=== PATIENT | male | born 1960 | race Caucasian/White ===

== ENCOUNTER 2017-08-07 06:56 | Day surgery (SDC) | payer OTHER ==
[2017-08-07] MEDS ORDERED: LR 1,000 ML IV ONE (07:10)
[2017-08-07 07:46] VITALS: PULSE 70
--- NOTE | 2017-08-07 07:48 | PDHPUP ---
History & Physical Update H&P update statement: This history and physical update is based on an assessment of the patient which was completed after admission or registration (within 24 hours), but prior to the surgery/procedure. H&P update: H&P reviewed & patient examined, no change in patient's condition since H&P completed
[2017-08-07] MEDS ORDERED: BUPIVACAINE 0.5% 30 ML SDV ONE (07:50)
[2017-08-07] MEDS ORDERED: MIDAZOLAM 2 MG/2 ML VIAL IVP ONE (08:01)
--- NOTE | 2017-08-07 08:05 | PDANEPAE ---
ANE History of Present Illness Laparoscopic BL hernia ANE Past Medical History - Cardiovascular History Hx Hypertension: No Hx Arrhythmias: No Hx Chest Pain: No Hx Coronary Artery / Peripheral Vascular Disease: No Hx CHF / Valvular Disease: No Hx Palpitations: No - Pulmonary History Hx COPD: No Hx Asthma/Reactive Airway Disease: No Hx Recent Upper Respiratory Infection: No Hx Oxygen in Use at Home: No Hx Sleep Apnea: No Sleep Apnea Screening Result - Last Documented: Negative Pulmonary History Comment: DENIES SOB W STAIRS - Neurologic History Hx Cerebrovascular Accident: No Hx Seizures: No Hx Dementia: No - Endocrine History Hx Diabetes: Yes Hypothyroid: Yes Endocrine History Comment: LOW THYROID - Renal History Hx Renal Disorders: No - Liver History Hx Hepatic Disorders: No - Neurological & Psychiatric Hx Hx Neurological and Psychiatric Disorders: Yes Neurological / Psychiatric History Comment: ADD - Cancer History Hx Cancer: Yes Cancer History Comment: hx of skin ca - Congenital Disorder History Hx Congenital Disorders: No - GI History GERD: no Hx Gastrointestinal Disorders: No - Other Health History Other Health History: OA R KNEE. - Chronic Pain History Chronic Pain: Yes (R KNEE) - Surgical History Prior Surgeries: L TKA 2015. R TKA 2015. right ear plastic surgery at 4 years old. bilateral wrists set under anesthesia at 7 years old. 8 years ago right achilles tendon repair. 2009 right acl repair [address] dr los MCALLISTER Review of Systems Review of systems is: negative Review of Systems: - Exercise capacity METS (RN): 5 METS ANE Patient History - Allergies Allergies/Adverse Reactions: cephalexin monohydrate [From Keflex] Allergy (Verified 09/01/14 17:07) Vomiting oxycodone HCl [From Percocet] Allergy (Verified 09/01/14 17:07) Vomiting - Home Medications Home Medications: Levothyroxine [Synthroid 100 mcg (*)] 100 mcg PO DAILY06 05/22/15 [Last Taken ] - NPO status NPO Since - Liquids (Date): 08/06/17 NPO Since - Solids (Date): 08/06/17 - Anes Hx Anes Hx: no prior problems - Smoking Hx Smoking Status: Never smoked - Family Anes Hx Family Hx Anesthesia Complications: none ANE Labs/Vital Signs - Vital Signs Blood Pressure: 167/102 Heart Rate: 70 Respiratory Rate: 16 O2 Sat (%): 96 Height: 175.26 cm Weight: 83.915 kg ANE Physical Exam - Airway Neck exam: FROM Mallampati Score: Class 1 Mouth exam: normal dental/mouth exam - Pulmonary Pulmonary: no respiratory distress, no rales or rhonchi - Cardiovascular Cardiovascular: regular rate and rhythym, no murmur, rub, or gallop - ASA Status ASA Status: I ANE Anesthesia Plan Anesthesia Plan: general endotracheal anesthesia
--- NOTE | 2017-08-07 08:06 | POSTOPPROG ---
Post Op Note Date of Operation: 08/07/17 Surgeon: Vasile Whiting Anesthesiologist: Dale Anesthesia: GET(General Endotracheal) Pre-op Diagnosis: RIH Post-op Diagnosis: BIH Procedure: Lap BIH Findings: bilateral direct defects Inf/Abcess present in the surg proc area at time of surgery?: No EBL: Minimal Complications: no immediate Specimen(s): none
[2017-08-07] MEDS ORDERED: fentaNYL 100 MCG/2 ML INJ ONE ×4 (08:13→08:56)
[2017-08-07] MEDS ORDERED: ROCURONIUM 50 MG/5 ML VIAL ONE ×2 (08:14→08:33)
[2017-08-07] MEDS ORDERED: LIDOCAINE 2% 5 ML SDV ONE (08:14)
[2017-08-07] MEDS ORDERED: PROPOFOL/EMULSION 500 MG/50 ML BOTTLE IV ONE (08:14)
[2017-08-07] MEDS ORDERED: PROPOFOL 200 MG/20 ML VIAL ONE (08:14)
[2017-08-07] MEDS ORDERED: SCOPOLAMINE HYDROBROMIDE 1 MG/3 DAYS PATCH TD SCH (08:15)
[2017-08-07] MEDS ORDERED: LABETALOL HCL 5 MG/ML 20 ML MDV ONE (08:29)
[2017-08-07] MEDS ORDERED: ONDANSETRON 4 MG/2 ML VIAL ONE (08:33)
[2017-08-07] MEDS ORDERED: GLYCOPYRROLATE 0.2 MG/1 ML VIAL ONE (08:33)
[2017-08-07] MEDS ORDERED: DEXAMETHASONE 4 MG/ML VIAL ONE ×2 (08:33→08:46)
[2017-08-07] MEDS ORDERED: epHEDrine SULFATE 10 MG/ML SYR ONE (08:40)
[2017-08-07] MEDS ORDERED: SUGAMMADEX SODIUM 200 MG/2 ML VIAL IVP ONE (08:47)
[2017-08-07] MEDS ORDERED: hydrALAZINE 20 MG/ML VIAL ONE (08:47)
[2017-08-07] MEDS ORDERED: HYDROmorphONE/DILAUDID 2 MG/ML INJ ONE (08:52)
[2017-08-07] MEDS ORDERED: HYDROCODONE/APAP 5/325 TAB PO PRN (09:21)
[2017-08-07] MEDS ORDERED: HYDROmorphONE/DILAUDID 1 MG/ML INJ IVP PRN (09:21)
[2017-08-07] MEDS ORDERED: NALOXONE HCL 0.4 MG/ML INJ IVP PRN (09:21)
[2017-08-07] MEDS ORDERED: LABETALOL HCL 5 MG/ML 20 ML MDV IVP PRN (09:21)
[2017-08-07] MEDS ORDERED: ONDANSETRON 4 MG/2 ML VIAL IVP PRN (09:21)
[2017-08-07] MEDS ORDERED: LR 500 ML IV PRN (09:21)
[2017-08-07] MEDS ORDERED: fentaNYL 100 MCG/2 ML INJ IVP PRN (09:21)
[2017-08-07] MEDS ORDERED: ENALAPRILAT DIHYDRATE 1.25 MG/ML VIAL IVP PRN (09:21)
--- NOTE | 2017-08-07 09:50 | POSTANESTH ---
Post Anesthetic Evaluation Cardiovascular Status: Normal, Stable Respiratory Status: Normal, Stable Level of Consciousness/Mental Status: Can Participate in Eval Pain Control: Adequate, Prn Tx Ordered Nausea/Vomiting Control: Adequate, Prn Tx Ordered Complications Possibly Related to Anesthesia: None Noted
[2017-08-07 10:12] VITALS: RESP 13
[2017-08-07 10:27] VITALS: TEMP 97.3
[2017-08-07 10:37] VITALS: BP 148/84; O2SAT 95
--- NOTE | 2017-08-07 18:26 | GOP ---
[f rep st] OPERATIVE REPORT DATE OF OPERATION: 08/07/2017 SURGEON: Vasile Whiting MD ANESTHESIA: General. ANESTHESIOLOGIST: Dr. Hunter. PREOPERATIVE DIAGNOSIS: Right inguinal hernia. POSTOPERATIVE DIAGNOSIS: Bilateral hernia. PROCEDURE PERFORMED: Laparoscopic bilateral hernia repair. FINDINGS: INDICATIONS: A 57-year-old male with a symptomatic right inguinal hernia. He is undergoing surgical repair at this time. Risks and benefits of procedure explained, including bleeding, infection, open conversion, bladder injury, as well as recurrence. All questions were answered. He desires to proc eed. DESCRIPTION OF PROCEDURE: General anesthesia was induced. The abdomen was preinjected with 0.5% Mar andreia with epinephrine. A curvilinear infraumbilical incision was created. The right anterior rectu s sheath fascia was opened. The preperitoneal space was developed with a balloon dissector and troca r until bladder and preperitoneal structures were identified. A structural balloon was inserted foll owed by two 5 mm lower midline ports. Bilateral spermatic cords were circumferentially encompassed. There was a very large, chronic indirect right-sided hernia sac. There was a smaller, direct left-s ided inguinal hernia sac. There was no evidence of indirect sacs. The cords were skeletonized. A l arge 3D Marlex mesh patch was inserted and secured to Rosalio's ligament and the anterior abdominal wa ll and allowed to spring into place. Satisfactory hemostasis was assured. Complete coverage of the myopectineal surface was obtained. Trocars were removed under direct visualization. The anterior re ctus sheath fascia was closed with a running Vicryl suture. The wounds were closed with Monocryl sut ure followed by Dermabond. The patient was taken to Recovery uneventfully. /[id number]/MODL
== END 2017-08-07 10:55 | disposition home or self-care (01) ==
LOC: FSGY 06:56
PROVIDERS: ATTEND Surgery
PROC: 0YQA4ZZ Repair Bilateral Inguinal Region, Percutaneous Endoscopic Approach (ICD-10-PCS; principal; 2017-08-07 08:15)
DX: K40.20 Bilateral inguinal hernia, without obstruction or gangrene, not specified as recurrent (principal); E03.9 Hypothyroidism, unspecified; Z96.653 Presence of artificial knee joint, bilateral
CPT/HCPCS: C1727; C1781; J0171; J0360; J1100; J1170; J2250; J2405; J2704; J3010; J3490